=== PATIENT | male | born 1970 | race Caucasian/White ===

== ENCOUNTER 2020-04-10 11:13 | Emergency (ER) | payer MEDICAID ==
[~2020-04-10] VITALS: Ht 180.3 cm; Wt 93.2 kg
[2020-04-10 11:22] VITALS: BP 149/106
[2020-04-10] MEDS ORDERED: AMOX500C2 PO (11:48)
[2020-04-10] MEDS ORDERED: HYDR-4383 PO (11:48)
== END 2020-04-10 12:05 | disposition home or self-care (01) ==
LOC: ER 11:14
DX: K02.9 Dental caries, unspecified (principal); Z79.2 Long term (current) use of antibiotics; Z79.899 Other long term (current) drug therapy
CPT/HCPCS: 99284

== ENCOUNTER 2021-04-25 17:57 | Emergency (ER) | payer MEDICAID ==
[~2021-04-25] VITALS: Ht 172.7 cm; Wt 93.6 kg
[~2021-04-25 17:57] MED LIST: HYDR-4383 PO
--- NOTE | 2021-04-25 19:36 | NUR ---
here for medication clearance [facility]
[2021-04-25] MEDS ORDERED: NICO-687 TOP (19:39)
[2021-04-25 19:44] VITALS: BP 133/80
== END 2021-04-25 19:44 | disposition home or self-care (01) ==
LOC: ER 17:58
DX: F10.129 Alcohol abuse with intoxication, unspecified (principal); Z00.00 Encounter for general adult medical examination without abnormal findings; F17.210 Nicotine dependence, cigarettes, uncomplicated; Z72.89 Other problems related to lifestyle; Z79.899 Other long term (current) drug therapy; Y90.9 Presence of alcohol in blood, level not specified
CPT/HCPCS: 99282

== ENCOUNTER 2021-12-19 00:51 | Emergency (ER) | payer MEDICAID | END 2021-12-19 03:34 | disposition left against medical advice (07) | LOC: ER 00:51 | DX: Z53.21 Procedure and treatment not carried out due to patient leaving prior to being seen by health care provider (principal) ==

== ENCOUNTER 2022-07-25 17:15 | Emergency (ER) | payer MEDICAID ==
[~2022-07-25] VITALS: Ht 172.7 cm; Wt 113.6 kg
[2022-07-25 17:52] VITALS: BP 134/90
== END 2022-07-25 18:14 ==
LOC: ER 17:16
DX: Z00.00 Encounter for general adult medical examination without abnormal findings (principal); F10.129 Alcohol abuse with intoxication, unspecified; Y90.9 Presence of alcohol in blood, level not specified
CPT/HCPCS: 99283

== ENCOUNTER 2022-09-10 12:25 | Emergency (ER) | payer MEDICAID ==
[~2022-09-10] VITALS: Ht 172.7 cm; Wt 220.0 kg
[2022-09-10 12:30] VITALS: BP 146/94
[2022-09-10] MEDS ORDERED: CEPH-585 PO (13:07)
[2022-09-10] MEDS ORDERED: cephalexin 250mg capsule PO ONE (13:10)
[2022-09-10] MEDS ORDERED: bacitracin 15gm ointment TP ONE (13:10)
== END 2022-09-10 13:38 | disposition home or self-care (01) ==
LOC: ER 12:25
DX: S40.921A Unspecified superficial injury of right upper arm, initial encounter (principal); Z79.1 Long term (current) use of non-steroidal anti-inflammatories (NSAID); L53.8 Other specified erythematous conditions; X58.XXXA Exposure to other specified factors, initial encounter; Y93.89 Activity, other specified; Y92.89 Other specified places as the place of occurrence of the external cause; Y99.8 Other external cause status
CPT/HCPCS: 99283; J7030; A6258; A6449

== ENCOUNTER 2024-04-26 18:40 | Emergency (ER) | payer MEDICAID ==
[~2024-04-26] VITALS: Ht 175.3 cm; Wt 96.0 kg
[2024-04-26 18:45] VITALS: BP 137/102; RESP 18; TEMP 98.6; O2SAT 98
[2024-04-26] MEDS ORDERED: CEPH-585 PO (21:12)
[2024-04-26] MEDS ORDERED: SULF1TAB49 PO (21:12)
[2024-04-26] MEDS: CefTRIAXone 1000mg IM Kit (w/lidocaine diluent) IM ONE (21:17)
== END 2024-04-26 21:29 | disposition home or self-care (01) ==
LOC: ER 18:41
DX: M70.21 Olecranon bursitis, right elbow (principal); Z79.899 Other long term (current) drug therapy; T75.89XA Other specified effects of external causes, initial encounter; X58.XXXA Exposure to other specified factors, initial encounter; Y92.89 Other specified places as the place of occurrence of the external cause; Y93.89 Activity, other specified
CPT/HCPCS: 96372; 99283; J0696